=== PATIENT | female | born 1950 | race Caucasian/White ===

== ENCOUNTER → 2017-02-01 | Outpatient (CLI) | payer OTHER ==
[~2017-02-01] MED LIST: RMCI
--- NOTE | 2017-02-01 15:58 | MAMMOGRAPHY REPORT ---
UNILATERAL RIGHT DIGITAL DIAGNOSTIC MAMMOGRAM TOMOSYNTHESIS WITH CAD AND TARGETED RIGHT ULTRASOUND: CLINICAL HISTORY: History of benign ultrasound-guided biopsy of a right breast mass June 2016, he re for short interval follow-up. The patient reports no current complaints. TECHNIQUE: Breast tomosynthesis in addition to standard 2D mammography was performed. Current study was also evaluated with a Computer Aided Detection (CAD) system. Right CC and MLO 2-D and tomosynthe sis images including implant displaced views were obtained. The tomosynthesis images were obtained o f the implant displaced views only. COMPARISON: Comparison is made to exams dated: 06/28/2016 mammogram, 06/28/2016 ultrasound biopsy, ultrasound, 06/20/2016 mammogram, 05/30/2016 mammogram, and 05/18/2015 mammogram - [facility]. BREAST COMPOSITION: The tissue of the right breast is heterogeneously dense, which may obscure small masses. FINDINGS: A biopsy marker clip is seen within the right medial breast from recent benign ultrasound-g uided biopsy of a right 1:00 breast mass. The previously described asymmetry seen within the right p osterior breast on the implant displaced MLO view is less prominent on the current exam. The tissue in this region has the appearance of normal fibroglandular tissue and appears similar to multiple tere or exams including the 2008 exam. The asymmetry is benign and compatible with normal fibroglandular tissue. The remainder of the right breast is stable compared to prior exams, without suspicious mass es, calcifications, or areas of architectural distortion noted. Targeted ultrasound was performed of the previously biopsied mass. In the right breast at 1:00, 4 cm from the nipple, there is a hypoechoic mass which measures 7 x 3 x 10 mm. This is stable in size an d appearance compared to the May 2016 exam when accounting for differences in measurement techni que. A biopsy marker clip is seen within the mass. Given the stability and given the benign patholo gy, the mass is benign. IMPRESSION: ACR BI-RADS CATEGORY 2: BENIGN, TARGETED ULTRASOUND ACR BI-RADS CATEGORY 2: BENIGN There is no mammographic or targeted sonographic evidence of malignancy. Return to annual mammogram s creening schedule is recommended, due May 2017. The patient has been verbally notified of the r esults. Approximately 10% of breast cancers are not detected with mammography. A negative mammographic report should not delay biopsy if a clinically suggestive mass is present. Lashonda Braga M.D. ah/:02/01/2017 14:53:55 Clinical Document Improvement Educator: Amada BURRELL)([place]), [facility] letter sent: Normal 1/2 BI-RADS Code: ACR BI-RADS Category 2: Benign Ultrasound BI-RADS: ACR BI-RADS Category 2: Benign
== END | disposition home or self-care (01) ==
LOC: C.MAMM 14:03
PROVIDERS: ATTEND Obstetrics & Gynecology
DX: Z09 Encounter for follow-up examination after completed treatment for conditions other than malignant neoplasm (principal); D24.1 Benign neoplasm of right breast; R92.8 Other abnormal and inconclusive findings on diagnostic imaging of breast

== ENCOUNTER → 2017-05-31 | Outpatient (CLI) | payer OTHER ==
--- NOTE | 2017-05-31 15:38 | MAMMOGRAPHY REPORT ---
BILATERAL DIGITAL SCREENING MAMMOGRAM TOMOSYNTHESIS WITH CAD: 05/31/2017 CLINICAL HISTORY: Patient presents for routine screening. S/P bilateral augmentation. TECHNIQUE: Breast tomosynthesis in addition to standard 2D mammography was performed. Current study was also evaluated with a Computer Aided Detection (CAD) system. COMPARISON: Comparison is made to exams dated: 02/01/2017 ultrasound, 02/01/2017 mammogram, 06/28/2016 mammogram, 06/28/2016 ultrasound biopsy, and 06/20/2016 ultrasound - [facility]. BREAST COMPOSITION: The tissue of both breasts is heterogeneously dense, which may obscure small mas ses. FINDINGS: No suspicious masses, calcifications, or areas of architectural distortion are noted in ei ther breast. There has been no significant interval change compared to prior exams. A biopsy marker clip is again noted within the right medial breast. Bilateral benign-appearing calcifications are no t significantly changed. IMPRESSION: ACR BI-RADS CATEGORY 2: BENIGN There is no mammographic evidence of malignancy. A 1 year screening mammogram is recommended. The pa tient will receive written notification of the results. Approximately 10% of breast cancers are not detected with mammography. A negative mammographic report should not delay biopsy if a clinically suggestive mass is present. Lashonda Braga M.D. ah/:05/31/2017 15:23:29 Wrapping Machine Operator: Eliz WELLINGTON(Dmitriy)(M), [facility] letter sent: Normal 1/2 BI-RADS Code: ACR BI-RADS Category 2: Benign
== END | disposition home or self-care (01) ==
LOC: C.MAMM 09:52
PROVIDERS: ATTEND Obstetrics & Gynecology
DX: Z12.31 Encounter for screening mammogram for malignant neoplasm of breast (principal); Z98.82 Breast implant status

== ENCOUNTER → 2017-06-25 | Outpatient (CLI) | payer OTHER ==
[2017-06-25 17:31] LABS: INFLUENZA A PCR Neg for Influ A (NEG); INFLUENZA B PCR Neg for Influ B (NEG)
== END | disposition home or self-care (01) ==
LOC: C.LAB 15:49
PROVIDERS: ATTEND Family Medicine
DX: Z13.9 Encounter for screening, unspecified (principal)

== ENCOUNTER 2018-02-20 20:20 | Emergency (ER) | payer OTHER ==
[~2018-02-20] VITALS: Ht 162.6 cm; Wt 52.8 kg
[~2018-02-20 20:20] MED LIST changes: -RMCI; +RMCI IV
[2018-02-20 20:24] VITALS: Ht 162.6 cm; Wt 52.8 kg
[2018-02-20] MEDS ORDERED: DiphenhydrAMINE HCL 50 MG/ML VIAL IV STA (20:34)
[2018-02-20] MEDS ORDERED: METHYLPREDNISOLONE 125 MG VIAL IV STA (20:34)
[2018-02-20] MEDS ORDERED: RANITIDINE HCL 50 MG/100 ML D5W IV STA (20:34)
[2018-02-20] MEDS ORDERED: SODIUM CHLORIDE 0.9% 1000ML 1,000 ML IV STA (20:34)
--- NOTE | 2018-02-20 20:37 | EMERGENCY ROOM VISIT NOTE ---
History Report prepared by Primo: Silvia Woodruff Under the Supervision of: Dr. Boone Teague M.D. First contact with patient: 20:28 Chief Complaint: ALLERGIC REACTION Stated Complaint: BEE STING, ALLERGIC REACTION History of Present Illness The patient is a 67 year old female who presents to the Emergency Room with complaints of an allergic reaction after being stung by a bee beginning at 1830. She states she was outside gardening when she got stung by a bee on her right ankle. She went inside and thought all the bees were gone, so she went back outside but then got stung again. Since being stung, she has developed a rash over her abdomen, face, chest, and extremities and notes it is extremely itchy. The patient notes her tongue feels numb but she denies any SOB. She reports she has never had an allergic reaction to bees but notes she has not been stung for 60 years. Source of History: patient Onset: 1829 Position: tongue, abdomen Quality: other (allergic reaction) Timing: other (after being stung by 2 bees) Associated Symptoms: + numbness (tongue), + rash (over her abdomen, face, chest, and extremities), No SOB Note: Positive itchiness Review of Systems See HPI for pertinent positives and negatives. A total of ten systems were reviewed and were otherwise negative. Past Medical & Surgical Medical Problems: (1) No significant past medical history Family History No significant family history Social History Smoking Status: Never Smoker Smokeless Tobacco Use: No Alcohol Use: occasionally Housing Status: lives with significant other Occupation Status: retired Current/Historical Medications Scheduled Aspirin (Aspirin Ec), 81 MG PO DAILY Calcium Carbonate (Calcium), 600 MG PO DAILY Cholecalciferol (Vitamin D), 2,000 UNITS PO DAILY Hctz/Losartan (Hyzaar 25MG/100MG), 1 TAB PO DAILY Infliximab (Remicade), 300 MG IV Q6WK Multiple Vitamins W/ Minerals (Centrum Silver 50+Women), 1 TAB PO DAILY Prednisone (Prednisone), 3 TAB PO DAILY Scheduled PRN Diphenhydramine Hcl (Sleep) (Diphenhydramine Hcl), 1 TAB PO QID PRN for Itching Epinephrine (Epipen 2-Ivan), 0.3 MG IM BLANK PRN for Allergic Reaction Ranitidine Hcl (Zantac), 150 MG PO BID PRN for Itching Allergies Coded Allergies: Fish (Unverified Allergy, Severe, VOMIT, 02/20/18) Uncoded Allergies: BEES (Allergy, Severe, ANAPHYLAXIS, 02/21/18) Physical Exam Vital Signs Date Time Temp Pulse Resp B/P (MAP) Pulse Ox O2 Delivery O2 Flow Rate FiO2 02/21/18 00:45 36.7 84 18 120/70 97 02/21/18 00:07 87 18 133/64 96 Room Air 02/20/18 23:15 81 18 145/56 96 Room Air 02/20/18 22:30 80 21 148/69 96 Room Air 02/20/18 22:20 81 18 161/70 96 Room Air 02/20/18 22:02 84 18 174/77 97 02/20/18 22:01 02/20/18 22:00 80 21 99 02/20/18 21:31 151/75 02/20/18 21:30 76 19 99 02/20/18 21:15 Room Air 02/20/18 21:10 75 02/20/18 21:02 170/67 02/20/18 20:48 85 18 137/68 100 Room Air 02/20/18 20:44 Room Air 02/20/18 20:24 36.7 105 20 179/76 97 Room Air Physical Exam GENERAL: Awake, alert, uncomfortable-appearing, in no distress HENT: Normocephalic, atraumatic. Oropharynx unremarkable. Mucous membranes are dry. No oropharyngeal edema, tongue elevation, or trismus. EYES: Normal conjunctiva. Sclera non-icteric. NECK: Supple. No nuchal rigidity. FROM. No JVD. No stridor. RESPIRATORY: Clear to auscultation. CARDIAC: Regular rate, normal rhythm. Extremities warm and well perfused. Pulses equal. ABDOMEN: Soft, non-distended. No tenderness to palpation. No rebound or guarding. No masses. RECTAL: Deferred. MUSCULOSKELETAL: Chest examination reveals no tenderness. The back is symmetrical on inspection without obvious abnormality. There is no CVA tenderness to palpation. No joint edema. LOWER EXTREMITIES: Calves are equal size bilaterally and non-tender. No edema. No discoloration. NEURO: Normal sensorium. No sensory or motor deficits noted. SKIN: No jaundice noted. Diffuse pruritic, raised,erthematous, blanchable rash c /w urticaria across her face, chest, back, and extremities. Medical Decision & Procedures Medications Administered Medications (Trade) Dose Ordered Sig/Ashley Route Start Time Stop Time Status Last Admin Dose Admin Ranitidine HCl (zANTac IV) 50 mg NOW STAT IV 02/20/18 20:34 02/20/18 20:36 DC 02/20/18 20:53 50 MG Sodium Chloride 1,000 ml @ 999 mls/hr Q1H1M STAT IV 02/20/18 20:34 02/20/18 21:34 DC 02/20/18 20:44 999 MLS/HR Methylprednisolone Sodium Succinate (Solu-Medrol IV) 125 mg NOW STAT IV 02/20/18 20:34 02/20/18 20:36 DC 02/20/18 20:44 125 MG Diphenhydramine HCl (Benadryl Inj) 50 mg NOW STAT IV 02/20/18 20:34 02/20/18 20:36 DC 02/20/18 20:44 50 MG Lidocaine HCl (Viscous Lidocaine 2% Soln) 20 ml STK-MED ONCE .ROUTE 02/20/18 21:53 02/20/18 21:54 DC 02/20/18 21:58 20 ML Al Hydroxide/Mg Hydroxide (Maalox Susp) 30 ml STK-MED ONCE .ROUTE 02/20/18 21:53 02/20/18 21:54 DC 02/20/18 21:58 30 ML Epinephrine HCl (EpINEphrine INJ 1MG/ML AMP/VIAL) 1 mg STK-MED ONCE .ROUTE 02/20/18 22:15 02/20/18 22:16 DC 02/20/18 22:19 0.3 MG ECG Per My Interpretation Indication: other (allergic reaction) Rate (beats per minute): 75 Rhythm: normal sinus Findings: no acute ischemic change ED Course 2030: The patient was evaluated in room C4. A complete history and physical exam was performed. 2208: I checked on the patient at this time. She is feeling better in every aspect except her tongue is more swollen. She will receive an EpiPen. 0020: I reevaluated the patient. Discussed results and discharge instructions: She verbalized understanding and agreement. The patient is ready for discharge. Medical Decision I reviewed the patient's past medical history, medications, and the nursing notes as described above. Differential diagnosis: Etiologies such as allergic reaction, anaphylaxis, urticaria, Thurman-Dwain syndrome, toxic epidermal necrolysis, erythema multiforme, cellulitis, as well as others were entertained. The patient is a 67 y/o woman with a pmhx of crohn's disease on [employer] who presents to the emergency department with severe allergic reaction after being stung twice by bees per HPI. On arrival the patient is uncomfortable but in NAD , AFVSS. On exam the patient has diffuse pruritic, raised, erythematous, blanchable rash c/w urticaria across her face, chest, back, and extremities.. Initially no oropharyngeal edema or injection despite patient's report of tingling and swelling. No stridor. Lungs clear. Patient given IVF, benadryl, zantac, solumedrol with resolution of her urticaria however subsequently with objective tongue swelling without trismus. Given the extent of the patient's allergic sx, episode is concerning for anaphylaxis and so was given IM epi with good effect and resolution of her sx after additional observation. Patient given Epipen with teaching and plan for prednisone course. Of note, patient has [employer] infusion upcoming and she will inform her providers about her visit today. Findings and plan for follow-up reviewed with patient. Patient agreeable and d/c'd per discharge instructions. Blood Pressure Screening Patient's blood pressure: Elevated blood pressure Blood pressure disposition: Elevated BP felt to be situational Impression Primary Impression: Bee sting-induced anaphylaxis Critical Care I have personally spent greater than 35 minutes of critical care time in the direct management of this patient. This includes bedside care, interpretation of diagnostic studies, and testing, discussion with consultants, patient, and family members, and other required patient management activities. This 35 minutes is in excess of all separately billable procedures. Scribe Attestation The scribe's documentation has been prepared under my direction and personally reviewed by me in its entirety. I confirm that the note above accurately reflects all work, treatment, procedures, and medical decision making performed by me. Departure Information Dispostion Home / Self-Care Prescriptions Epinephrine (EPIPEN 2-IVAN) 0.3 Mg Inj 0.3 MG IM BLANK Y for Allergic Reaction, #2 EA As needed for anaphylaxis, may repeat dose in 5 to 15 minutes Prov: Boone Teague M.D. 02/21/18 Ranitidine Hcl (ZANTAC) 150 Mg Tab 150 MG PO BID Y for Itching for 7 Days, #14 TAB Prov: Boone Teague M.D. 02/21/18 Diphenhydramine Hcl (Sleep) (DIPHENHYDRAMINE HCL) 50 Mg Tab 1 TAB PO QID Y for Itching for 7 Days, #30 TAB Prov: Boone Teague M.D. 02/21/18 Prednisone (Prednisone) 20 Mg Tab 3 TAB PO DAILY for 4 Days, #12 TAB FOR 4 DAYS Prov: Boone Teague M.D. 02/21/18 Referrals No Doctor, Assigned (PCP) Forms HOME CARE DOCUMENTATION FORM, IMPORTANT VISIT INFORMATION Patient Instructions ED Anaphylaxis General, [facility] Additional Instructions Please follow up with your primary care physician in the next 1-3 days for re- evaluation. You were treated today for an episode of anaphylaxis/severe allergic reaction due to a bee sting, which resolved with epinephrine. Prednisone as directed. Zantac and Benadryl as needed for itching. EpiPen as needed for recurrent anaphylaxis. Drink plenty of fluids to ensure hydration. Return to the emergency department for worsening symptoms as described in the accompanying instructions.
[2018-02-20] MEDS ORDERED: GI COCKTAIL PO STA (21:36)
[2018-02-20] MEDS ORDERED: ALUMINUM/MAGNESIUM SUSP 30 ML UDC ONE (21:53)
[2018-02-20] MEDS ORDERED: LIDOCAINE HCL 2% VISC SOLN 20 ML UDC ONE (21:53)
[2018-02-20] MEDS ORDERED: EPINEPHRINE ADULT AUTO-INJECT 0.3 MG SYR IM STA (22:10)
[2018-02-20] MEDS ORDERED: EpINEphrine INJ 1MG/ML AMP 1 MG/ML AMP ONE (22:15)
[2018-02-20] MEDS ORDERED: CALC-393 PO (22:39)
[2018-02-20] MEDS ORDERED: ASPI81TA28 PO (22:39)
[2018-02-20] MEDS ORDERED: MULT-1092 PO (22:39)
[2018-02-20] MEDS ORDERED: CHOL100010 PO (22:39)
[2018-02-20] MEDS ORDERED: HYZ/10015 PO (22:39)
[2018-02-21] MEDS ORDERED: EPINEPHRINE ADULT AUTO-INJECT 0.3 MG SYR IM STA (00:19)
[2018-02-21] MEDS ORDERED: DIPH50TA10 PO (00:26)
[2018-02-21] MEDS ORDERED: RANI150T3 PO (00:26)
[2018-02-21] MEDS ORDERED: PRED20TA PO (00:26)
[2018-02-21] MEDS ORDERED: EPP3/2 IM (00:26)
[2018-02-21 00:45] VITALS: BP 120/70; PULSE 84; TEMP 36.7; O2SAT 97
== END 2018-02-21 00:45 | disposition home or self-care (01) ==
LOC: C.EDB 20:21 → C.EDC 02-21 00:45
DX: T63.441A Toxic effect of venom of bees, accidental (unintentional), initial encounter (principal); Z79.82 Long term (current) use of aspirin; Z79.899 Other long term (current) drug therapy; Z91.013 Allergy to seafood